=== PATIENT | female | born 1970 | race Asian ===

== ENCOUNTER 2018-08-01 22:44 | Emergency (ER) | payer BC ==
[~2018-08-01] VITALS: Ht 157.5 cm; Wt 47.6 kg
[2018-08-01 22:47] VITALS: BP 112/87
--- NOTE | 2018-08-01 22:50 | NUR ---
PT AMBULATORY TO ER LOBBY W/ STEADY GAIT IN STABLE CONDITION.
--- NOTE | 2018-08-01 23:03 | NUR ---
PT RETURN FROM [facility] TO [facility] NULL
--- NOTE | 2018-08-01 23:31 | NUR ---
Pt ambulated to bed 2.
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
--- NOTE | 2018-08-02 00:02 | NUR ---
Patient being evaluated by physician at bedside.
[2018-08-02] MEDS ORDERED: IBUPROFEN 800 MG TAB PO ONE (00:25)
[2018-08-02 00:57] VITALS: BP 112/87
== END 2018-08-02 00:57 | disposition home or self-care (01) ==
LOC: MED 22:44
DX: S52.571A Other intraarticular fracture of lower end of right radius, initial encounter for closed fracture (principal); W18.09XA Striking against other object with subsequent fall, initial encounter; Y93.89 Activity, other specified; Y92.89 Other specified places as the place of occurrence of the external cause; Y99.8 Other external cause status
CPT/HCPCS: 29125; 73110; 99283; Q0092